=== PATIENT | female | born 1995 | race Caucasian/White ===

== ENCOUNTER 2022-02-28 16:43 | Emergency (ER) | payer OTHER, SELFPAY ==
[2022-02-28 17:10] VITALS: BP 111/93; PULSE 84; RESP 18; TEMP 36.6; O2SAT 100
--- NOTE | 2022-02-28 17:27 | ED.EAR ---
HPI - Ear Problem General Chief complaint: Ear Stated complaint: foreign object rt ear Time Seen by Provider: 02/28/22 17:28 Source: patient Mode of arrival: ambulatory Limitations: no limitations History of Present Illness HPI Narrative: 26-year-old months with concern for foreign body to right ear. Patient states that she was cleaning ears with Q-tip after shower this morning and when she pulled the Q-tip from her right ear the cotton was gone. She states it is possible that the cotton was already gone prior to putting the Q-tip into her ear. She reports no pain, no change in hearing. All systems reviewed and negative except as noted above. Review of Systems Review of Systems: CONSTITUTIONAL: Denies fever, chills, or sweats. EYES: Denies visual changes, redness, or discharge. ENT: Denies rhinorrhea, congestion, sore throat, or otalgia. Reports concern for foreign body to right ear. CARDIOVASCULAR: Denies chest pain, palpitations, or edema. RESPIRATORY: Denies cough or dyspnea. GASTROINTESTINAL: Denies abdominal pain, nausea, vomiting, or diarrhea. GENITOURINARY: Denies dysuria or hematuria. SKIN: Denies rash or itching. MUSCULOSKELETAL: Denies back pain, joint pain, or myalgia. NEUROLOGIC: Denies headache, numbness, or weakness. PSYCHIATRIC: Denies anxiety or depression. All other systems reviewed are negative, except as documented in HPI. PMFSH Comments At time of signature, agree with nursing past medical, surgical, social and family history. There is no relevant family history pertinent to the presenting complaint. Exam Narrative: GENERAL: This is a well-nourished, well-developed patient, in no apparent distress. HEAD: normocephalic, atraumatic. EYES: PERRL. Sclera clear/white. Vision is grossly intact. EARS: External ears normal, auditory canals clear and without drainage, TMs normal without perforation. Hearing grossly intact. No foreign body noted. NOSE: External nose normal NECK: Neck supple, non-tender without lymphadenopathy, masses or thyromegaly. CARDIOVASCULAR: Normal heart rate. RESPIRATORY: Normal respiratory rate. SKIN: warm, Dry, intact with no suspicious lesions or rash, good texture and turgor. NEURO: awake, alert, and oriented to person, place and time. There were no obvious focal neurologic abnormalities. EXTREMITIES: Normal range of motion to all extremities. Course Course Level of Care: Express Care Visit Vital Signs Vital signs: Vital Signs Temperature 36.6 C 02/28/22 17:10 Pulse Rate 84 02/28/22 17:10 Respiratory Rate 18 02/28/22 17:10 Blood Pressure 111/93 H 02/28/22 17:10 Pulse Oximetry 100 02/28/22 17:10 Temperature 36.6 C 02/28/22 17:10 Pulse Rate 84 02/28/22 17:10 Respiratory Rate 18 02/28/22 17:10 Blood Pressure 111/93 H 02/28/22 17:10 Pulse Oximetry 100 02/28/22 17:10 Reviewed Medical Decision Making MDM Narrative Medical decision making narrative: Patient's ear exam was normal. There was no foreign body noted. Patient is aware of diagnosis, understands and agrees to treatment plan. Anticipatory guidance given. Patient agrees to follow-up as directed and is aware of reasons to seek care at the emergency department. Portions of this record may have been created with voice recognition software Vital Signs Vital Signs: Vital Signs Temperature 36.6 C 02/28/22 17:10 Pulse Rate 84 02/28/22 17:10 Respiratory Rate 18 02/28/22 17:10 Blood Pressure 111/93 H 02/28/22 17:10 Pulse Oximetry 100 02/28/22 17:10 Temperature 36.6 C 02/28/22 17:10 Pulse Rate 84 02/28/22 17:10 Respiratory Rate 18 02/28/22 17:10 Blood Pressure 111/93 H 02/28/22 17:10 Pulse Oximetry 100 02/28/22 17:10 Discharge Plan Discharge Clinical Impression: Well adult health check Patient Disposition: Home, Self-Care Condition: Stable Instructions: General Patient Instructions Additional Instructions: Your ear exam was normal tod
== END 2022-02-28 17:36 | disposition home or self-care (01) ==
PROVIDERS: Emergency Provider Nurse Practitioner Family
DX: Z71.1 Person with feared health complaint in whom no diagnosis is made (principal)
CPT/HCPCS: 99202; G0463